=== PATIENT | male | born 1940 | race African-American/Black ===

== ENCOUNTER 2020-09-03 07:39 | Emergency (ER) | payer MEDICARE, SELFPAY ==
--- NOTE | ~2020-09-03 | XR_ITS ---
EXAMINATION: XR chest 2V DATE: 09/03/2020 08:11 INDICATION: Weakness. Constipation. TECHNIQUE: Frontal and lateral views of the chest were obtained. COMPARISON: None. FINDINGS: There is mild atelectasis in the lower lung zones. There is mild scarring at the lung apice s. No pleural effusion or pneumothorax. Cardiomegaly is noted. IMPRESSION: 1. Mild atelectasis in the lower lung zones and mild scarring at the lung apices. 2. Cardiomegaly. Reviewed, dictated and finalized at location A. IMPRESSION: 1. Mild atelectasis in the lower lung zones and mild scarring at the lung apice s. 2. Cardiomegaly.
--- NOTE | ~2020-09-03 | XR_ITS ---
EXAMINATION: XR abdomen/kub 1V EXAM DATE: 09/03/2020 10:09 INDICATION: Abdominal pain. Constipation. TECHNIQUE: Frontal projection(s) of the abdomen for interpretation. There is no prior study for yury blair. FINDINGS: There is moderate amount of colonic gas, only small amount of stool identified. Several sm all bowel loops with gas but normal in caliber, no obstruction. There are arterial calcifications, ar teriosclerosis. Mild lumbar dextroscoliosis. 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 IMPRESSION: Moderate amount of colonic gas. Nonspecific but nonobstructive bowel gas pattern. Reviewed, dictated and finalized at location A. IMPRESSION: Moderate amount of colonic gas. Nonspecific but nonobstructive bow el gas pattern.
[2020-09-03 07:37] VITALS: BP 165/78; PULSE 77; RESP 18; TEMP 36.5; O2SAT 100
[2020-09-03 07:47] VITALS: PULSE 73
--- NOTE | 2020-09-03 08:00 | ECG_ITS ---
Measurements Intervals [place] Rate: 74 P: 51 HI: 205 QRS: -36 QRSD: 91 T: 28 QT: 382 QTc: 426 Interpretive Statements SINUS RHYTHM LEFT AXIS DEVIATION BORDERLINE AV CONDUCTION DELAY INCOMPLETE RIGHT BUNDLE BRANCH BLOCK VOLTAGE CRITERIA FOR LVH CANNOT RULE OUT SEPTAL INFARCT, AGE INDETERMINATE BASELINE ARTIFACT- I, II, III, AVR, AVL, AVF ABNORMAL ECG Electronically Signed On 09-03-2020 8:23:21 CDT by Caio Medina D.O.
--- NOTE | 2020-09-03 08:38 | PC.NURSE ---
Urine obtained through chronic [place]. Emptied at about 0645 per pt.
[2020-09-03 08:44] LABS: Add Urine Microscopic? YES; Appearance Urine Clear (Clear); Bilirubin Urine Negative (Negative); Blood Urine Negative (Negative); Color Urine Straw (Yellow); Glucose Urine UA Negative (Negative); Ketones Urine Negative (Negative); Leukocyte Esterase Ur 1+ LEU/UL (Negative); Mucus Urine Rare /lpf; Nitrate Urine Positive (Negative); Protein Urine Negative (Negative); RBC Urine 0-2 /hpf (0-2); Specific Grav Ur 1.006 (1.001-1.035); Urobilinogen Urine Negative mg/dL (<2.0)
[2020-09-03 08:50] VITALS: BP 157/71; PULSE 76; RESP 22
[2020-09-03 09:01] LABS: Basophils Absolute Auto 0.1 K/mm3 (0.0-0.1); Basophils Percent Auto 0.7 % (0.2-1.2); Eosinophils Absolute Auto 0.4 K/mm3 (0-0.3); Eosinophils Percent Auto 4.9 % (0-4.4); Hematocrit 34.2 % (42.0-52.0); Hemoglobin 11.8 g/dL (14.0-18.0); Immature Granulocyte Absolute 0.02 K/mm3 (0.00-0.031); Immature Granulocyte Percent A 0.3 % (0-0.5); Lymphocytes Absolute Auto 1.12 K/mm3 (0.9-3.2); Lymphocytes Percent Auto 15.7 % (18.3-44.2); Mean Corpuscular HGB Conc 34.5 g/dl (32-36); Mean Corpuscular Hemoglobin 31.7 pg (26-34); Mean Corpuscular Volume 91.9 fl (80-100); Mean Platelet Volume 8.1 fl (7.4-10.4); Monocytes Absolute Auto 1.3 K/mm3 (0.1-0.6); Monocytes Percent Auto 17.6 % (2.6-8.5); Neutrophils Absolute Auto 4.3 K/mm3 (1.3-6.7); Neutrophils Percent Auto 60.8 % (45.5-73.1); Platelet Count Result 229 k/mm3 (150-375); Red Blood Count 3.72 M/mm3 (4.6-6.20); Red Cell Distribution Width 13.9 % (11.5-14.5); White Blood Count 7.1 K/mm3 (4.5-10.0)
[2020-09-03 09:15] LABS: Anion Gap 6 mmol/L (8-16); Blood Urea Nitrogen 10 mg/dL (9-20); Carbon Dioxide 25 mmol/L (22-30); Chloride 94 mmol/L (98-107); Estimated Glomerular Filt Rate > 60; Glucose 82 mg/dL (75-110); Sodium 125 mmol/L (137-145)
[2020-09-03 09:17] LABS: Potassium 3.7 mmol/L (3.4-5.0)
[2020-09-03 09:20] VITALS: BP 151/76; PULSE 72; RESP 22
[2020-09-03 10:00] VITALS: BP 138/78; PULSE 74; RESP 21
--- NOTE | 2020-09-03 10:56 | ED.GENADULT ---
HPI - General Adult General Chief complaint: Weakness Stated complaint: STEMI Time Seen by Provider: 09/03/20 07:47 History of Present Illness HPI narrative: Patient is a 80-year-old male who presents ER with complaint of weakness and constipation. Patient came in by EMS and was initially called a STEMI due to what turned out to be early repolarization. Patient reports he does not have a bowel movement in a couple days. Patient reports he has been having a chronic issue with his bowel movements. He was seen 2 weeks ago at [facility] and examined and sent home and started on MiraLAX. He then was not having bowel movements to his satisfaction so he went to [facility] and was evaluated there. For an unknown reason he was admitted and transferred to [facility] to make sure there is no issues with his heart. He reports an unremarkable work-up but cannot tell me what they performed during that hospitalization. After being discharged from the hospital patient was home for couple days and went to [facility] where they told him he had no acute issues with regards to his constipation he continue take his MiraLAX. After talking to his primary care doctor 3 days ago they told him that he may potentially need to stop his MiraLAX which he has not. He reports occasional bouts of diarrhea. Still feels some bloating in his abdomen. reports he has had decreased p.o. intake. Related Data Home Medications Medication Instructions Recorded Confirmed amlodipine [Norvasc] 5 mg PO DAILY 09/03/20 09/03/20 ezetimibe mg 09/03/20 linagliptin [Tradjenta] mg 09/03/20 oxybutynin chloride mg PO 09/03/20 09/03/20 prednisone 09/03/20 Allergies Allergy/AdvReac Type Severity Reaction Status Date / Time ciprofloxacin Allergy Unknown Unknown Verified 09/03/20 08:28 minocycline Allergy Unknown Unknown Verified 09/03/20 08:28 Review of Systems Review of Systems: All systems reviewed & are unremarkable except as noted in HPI and below Constitutional: Constitutional: Denies chills, Denies fever(s) and Reports weakness ENT: Denies nasal congestion and Denies sore throat Cardiovascular: Cardiovascular: Denies chest pain, Denies rapid heart rate and Denies radiating jaw, neck or arm pain Respiratory: Respiratory: Denies cough, Denies dyspnea and Denies wheezing Gastrointestinal: Gastrointestinal: Denies abdominal pain, Reports bloating, Reports constipation, Reports diarrhea, Denies nausea and Denies vomiting Genitourinary: Genitourinary: Denies dysuria and Denies urinary frequency PMFSH Past Medical History Medical History (Updated 09/03/20 @ 11:06 by Mateo Baca MD) Asthma Diabetes Gout Hyperlipidemia Hypertension Prostate cancer Surgical History Surgical History (Updated 09/03/20 @ 11:02 by Mateo Baca MD) History of bladder surgery Social History Social History (Updated 09/03/20 @ 11:02 by Mateo Baca MD) Smoking status: Never smoker Exam Narrative: Exam Narrative: GENERAL: Well-appearing, well-nourished, and in no acute distress. HEAD: Normocephalic, atraumatic. EYES: PERRL and EOMI. ENT: Mucous membranes moist. CHEST: Clear to auscultation. No respiratory distress. HEART: Regular rate and rhythm. Normal peripheral pulses. ABDOMEN: Soft, nontender, nondistended, normal active bowel sounds. EXTREMITIES: Normal range of motion. No edema. NEURO: Alert and oriented x3. PSYCH: Normal mood and affect. Course Course Emergency Course: Unremarkable evaluation. Mild hyponatremia that does not seem to relate to his symptoms here today. Discussed he needs a follow-up with his PCP for further treatment evaluation. Patient has no dysuria so will not treat the urine with antibiotics and can go for culture. Vital Signs Vital signs: Vital Signs Temperature 97.7 F 09/03/20 07:37 Pulse Rate 77 09/03/20 07:37 Respiratory Rate 18 09/03/20 07:37 Blood Pressure 165/78 H
[2020-09-03 11:47] VITALS: BP 164/84; PULSE 80; RESP 18; O2SAT 100
== END 2020-09-03 11:47 | disposition home or self-care (01) ==
PROVIDERS: Emergency Provider Emergency Medicine; PCP Internal Medicine Endocrinology, Diabetes & Metabolism
DX: R14.0 Abdominal distension (gaseous) (principal); J45.909 Unspecified asthma, uncomplicated; E11.9 Type 2 diabetes mellitus without complications; M10.9 Gout, unspecified; E78.5 Hyperlipidemia, unspecified; I10 Essential (primary) hypertension; Z85.46 Personal history of malignant neoplasm of prostate; I51.7 Cardiomegaly; I45.10 Unspecified right bundle-branch block; R94.31 Abnormal electrocardiogram [ECG] [EKG]
CPT/HCPCS: 36415; 71046; 74018; 80048; 81001; 85025; 87077; 87086; 87088; 87186; 93005; 99283